=== PATIENT | male | born 1990 | race Caucasian/White ===

== ENCOUNTER 2016-11-01 20:28 | Day surgery (SDC) | payer OTHER ==
[~2016-11-01 20:28] MED LIST: APIDRA100 U/M; APIDRA100 U/M SQ; CLEOCIN HCL300 M1 PO; CYCLOBENZAPRINE10 MG PO; DARVOCET-N 1001 TAB PO; IBUPROFEN800 MG PO; KEFLEX500 MG PO; LANTUS100 UNITS/ SC; MOTRIN600 MG PO; NAPROSYN500 M1 PO; NORCO 5/325 TAB1 TAB PO; NOVOLOG100 U/M; SULFAMYLON60 GM TOP; ZITHROMAX250MG Z-PAK PO
[2016-11-01] MEDS ORDERED: NEURONTIN300 M1 PO (20:51)
[2016-11-01 21:04] LABS: URINE LEUKOCYTE ESTERASE NEGATIVE (NEG); URINE PROTEIN NEGATIVE (NEG)
[2016-11-01 21:06] LABS: BASO % 0.6 % (0-2); EOS % 3.2 % (0-7); EOSINOPHIL ABSOLUTE COUNT 0.2 tho/cmm (0.0-0.7); HCT-HEMATOCRIT 39.3 % (36.0-53.5); HGB-HEMOGLOBIN 14.1 gm/dl (13.5-17.0); IMMATURE GRANULOCYTES ABSOLUTE 0.01 tho/cmm (0-0.03); IMMATURE GRANULOCYTES PERCENT 0.1 % (0-0.3); LYMPH % 34.9 % (20-45); LYMPH ABSOLUTE COUNT 2.4 tho/cmm (0.8-4.5); MCH (MEAN CORPUSCULAR HGB) 29.4 pg (28.0-32.0); MCHC MEAN CORPUSCULAR HGB CONC 35.9 % (32.0-36.0); MEAN PLATELET VOLUME 11.2 cmc (9.4-12.4); MONO % 11.3 % (0-12); MONOCYTE ABSOLUTE COUNT 0.8 tho/cmm (0.0-1.2); NEUTROPHIL ABSOLUTE COUNT 3.5 tho/cmm (1.6-8.0); NEUTROPHIL-AUTOMATED 3.5 tho/cmm (1.6-8.0); NEUTROPHILS % 49.9 % (40-80); PLATELET COUNT 322 tho/cmm (150-450); RED BLOOD COUNT 4.79 mil/cmm (4.40-5.70); RED CELL DISTRIBUTION WIDTH 11.8 % (12.4-16.4); WHITE BLOOD COUNT 6.9 tho/cmm (4.0-10.0)
[2016-11-01 21:07] LABS: URINE APPEARANCE CLEAR; URINE BILIRUBIN NEGATIVE (NEG); URINE BLOOD NEGATIVE (NEG); URINE COLOR YELLOW; URINE GLUCOSE (UA) MODERATE (NEG); URINE KETONE NEGATIVE (NEG); URINE NITRITE NEGATIVE (NEG)
[2016-11-01 21:16] LABS: ANION GAP 11 mmol/L (0-20); BLOOD UREA NITROGEN 11 mg/dl (6-24); CALCIUM 9.3 mg/dl (8.5-10.5); CARBON DIOXIDE-VENOUS 29 mmol/L (22-32); CHLORIDE 102 mmol/l (96-110); CREATININE 0.99 mg/dl (0.60-1.30); GLUCOSE 191 mg/dL (70-110); SODIUM 138 mmol/L (135-145); eGFR VALUE FOR BLACK >90 mL/Min
[2016-11-01 21:18] LABS: POTASSIUM 3.9 mmol/L (3.7-5.1)
[2016-11-01] MEDS ORDERED: NOVOLIN R100 UNIT/1 SC (21:26)
[2016-11-01] MEDS ORDERED: TRESIBA FL200 UNIT/1 SC (21:29)
[2016-11-02] MEDS ORDERED: NORCO 5-325 TA1 EACH PO (10:23)
[2016-11-02] MEDS ORDERED: COLACE100 M1 PO (10:24)
--- NOTE | 2016-11-02 18:00 | NUR ---
VIRTUAL CARE NOTE: PT RESTING ON BED, STATES FEELING OK, JUST FINISHED DINNER, DENIES ANY ISSUES AT THIS TIME. PT IS READY FOR DISCHARGE INSTRUCTIONS. INFORMATION GIVEN TO PT, PT DENIES QUESTIONS. ADVICED PT TO STAY A LIITLE BIT AFTER DINNER MAKING SURE NO NAUSEAS OR INCREASED PAIN BEFORE DISCHARGE. FLOOR NURSE WILL RE-EVAL PT PRIOR TO DISCHARGE. NO OTHER NEEDS/QUESTIONS AT THIS TIME. INFORMED FLOOR NURSES DISCHARGE TEACHING COMPLETED.
== END 2016-11-02 19:24 ==
LOC: EDMED 20:28 → EMR2 11-02 00:15 → 5WD 11-02 01:04 → ORW 11-02 07:27 → PACU 11-02 08:28 → 5WD 11-02 09:20
PROVIDERS: Emergency Medicine
PROC: 0DTJ4ZZ Resection of Appendix, Percutaneous Endoscopic Approach (ICD-10-PCS; principal; 2016-11-02)
DX: K35.80 Unspecified acute appendicitis (principal); E11.8 Type 2 diabetes mellitus with unspecified complications; Z98.890 Other specified postprocedural states; Z88.1 Allergy status to other antibiotic agents; Z79.899 Other long term (current) drug therapy
CPT/HCPCS: J0744; J1170; J1956; J2270; J2405; J7030; Q9967